=== PATIENT | female | born 1950 | race Hispanic/Latino ===

== ENCOUNTER 2018-03-03 09:38 | Outpatient (CLI) | payer MEDICARE ==
[~2018-03-03 09:38] MED LIST: Gadobenate Dimeglumine 529 MG/1 ML (20ML VIAL) ONE
--- NOTE | 2018-03-03 16:13 | MRI ---
MRI OF THE BRAIN WITHOUT AND WITH CONTRAST: Date: 03/03/18 COMPARISON: None. HISTORY: Memory loss. TECHNIQUE: Multiplanar, multisequence MR images were obtained of the brain without and with IV contrast. FINDINGS: There are a few subtle scattered foci of high FLAIR signal in the subcortical and periventricular whi te matter, likely secondary to small vessel ischemic disease. No restricted diffusion is seen to sugg est an acute infarction. No abnormal enhancement is appreciated. There is no evidence of hydrocephalus, intracranial hemorrhage, or extra-axial fluid collection. The expected flow-voids are present. The corpus callosum, pituitary, and craniocervical junction are unre markable. The calvarium and overlying soft tissues are unremarkable. The visualized paranasal sinuses and masto id air cells are well aerated. IMPRESSION: No evidence of acute intracranial abnormality. POS: [facility]
== END 2018-03-03 09:39 | disposition home or self-care (01) ==
LOC: SCSMRI 09:38
PROVIDERS: ATTEND Family Medicine
DX: R41.3 Other amnesia (principal)
CPT/HCPCS: 70553; A9579